=== PATIENT | female | born 1990 | race Caucasian/White ===

== ENCOUNTER 2016-11-29 13:12 | Inpatient (IN) ==
[2016-11-29 15:27] LABS: URINE SOURCE CLEAN CATCH
[2016-11-29 15:30] LABS: BILIRUBIN URINE 2+ (NEGATIVE); BLOOD URINE NEGATIVE (NEGATIVE); CLARITY CLEAR (CLEAR); COLOR AMBER; GLUCOSE URINE NEGATIVE (NEGATIVE); LEUKOCYTES URINE 1+ (NEGATIVE); NITRITE URINE NEGATIVE (NEGATIVE); PH URINE 6.5; PROTEIN URINE 1+(30 mg/dL) mg/dL (NEGATIVE); URINE MICROSCOPIC NEEDED? YES
[2016-11-29 16:05] LABS: URINE EPITHELIAL CELLS <10 /HPF (<10); URINE RBC <10 /HPF (<10)
[2016-11-29] MEDS ORDERED: ROBAXIN PO PRN (18:00)
[2016-11-29] MEDS ORDERED: ZOFRAN IV PRN (18:00)
[2016-11-29] MEDS ORDERED: DULCOLAX PR PRN (18:00)
[2016-11-29] MEDS ORDERED: TYLENOL PO PRN (18:00)
[2016-11-29] MEDS ORDERED: IMODIUM PO PRN (18:00)
[2016-11-29] MEDS ORDERED: SALINE LOCK IV FLUID XX ONE (18:00)
[2016-11-29] MEDS ORDERED: LIBRIUM PO PRN (18:00)
[2016-11-29] MEDS ORDERED: MOTRIN PO PRN (18:00)
[2016-11-29] MEDS ORDERED: AMBIEN PO PRN (18:00)
[2016-11-29] MEDS ORDERED: BENTYL PO PRN (18:00)
[2016-11-29] MEDS ORDERED: MAALOX PLUS LIQUID PO PRN (18:00)
[2016-11-29] MEDS ORDERED: SINEMET 25/100 PO PRN (18:00)
[2016-11-29] MEDS ORDERED: SENOKOT PO PRN (18:00)
[2016-11-29] MEDS ORDERED: PHENERGAN PO PRN (18:00)
[2016-11-29] MEDS ORDERED: TUBERSOL ID ONE (18:00)
[2016-11-29] MEDS: NICODERM PATCH TD SCH (18:21)
[2016-11-29] MEDS: SUBOXONE 2 MG/0.5 MG SL SCH (18:22)
[2016-11-29] MEDS ORDERED: M.V.I.-12 10 ML, FOLIC ACID 1 MG, MAGNESIUM SULFATE 1 GM, THIAMINE 100 MG in NS 1,000 ML IV ONE (18:30)
[2016-11-29 18:35] LABS: MANUAL DIFF NEEDED? NO
[2016-11-29 18:38] LABS: BASO% 0.5 % (0.0-0.8); EOS# 0.13 X1000 (0.0-0.7); EOS% 1.6 % (0.0-10.0); HEMATOCRIT 40.9 % (37.0-47.0); HEMOGLOBIN 14.2 g/dL (12.0-16.0); IMM GRAN# 0.01 X1000 (0.0-0.04); IMM GRAN% 0.1 % (0.0-0.5); LYMPH# 3.76 X1000 (1.2-3.4); MCH 31.1 PG (27-31); MCHC 34.7 g/dL (33-37); MCV 89.5 FL (81-99); MONO# 0.75 X1000 (0.11-0.59); MONO% 9.2 % (1.7-9.3); MPV 11.6 FL (7.4-10.4); NEUT% 42.6 % (42.2-75.2); PLT 242 X1000 (130-400); RBC 4.57 XMIL (4.2-5.4)
[2016-11-29] MEDS ORDERED: GRALISE PO SCH ×2 (18:45)
[2016-11-29 19:06] LABS: INR 1.14 (0.86-1.15); PROTIME 14.9 Seconds (12.1-15.5)
[2016-11-29 19:13] LABS: AGAP 11; ALKALINE PHOSPHATASE 54 U/L (32-104); AMYLASE 66 U/L (20-200); BUN 10 mg/dL (8-22); CALCIUM 8.9 mg/dL (8.8-10.2); CHLORIDE 106 mmol/L (98-107); COSMO 283; GOT 11 U/L (10-30); GPT 7 U/L (10-36); LIPASE 32 U/L (13-60); POTASSIUM 3.1 mmol/L (3.5-5.1); SODIUM 142 mmol/L (136-145); TCO2 25 mmol/L (25-35); TOTAL PROTEIN 6.5 g/dL (6.3-8.3)
[2016-11-29] MEDS: KLONOPIN PO PRN (20:17)
[2016-11-29] MEDS ORDERED: SEROQUEL PO SCH (21:00)
[2016-11-29 22:57] LABS: UROBILINOGEN URINE 3+(8 mg/dL)
[2016-11-30] MEDS: SUBOXONE 2 MG/0.5 MG SL SCH (05:40)
[2016-11-30 07:58] VITALS: BP 110/63
[2016-11-30 08:26] LABS: UR AMPHETAMINES QUAL NONE DETECTED (NONE DETECT); UR BARBITUATES QUAL NONE DETECTED (NONE DETECT); UR BENZODIAZEPIN QUAL PRESUMPTIVE POSITIVE (NONE DETECT); UR CANNABINOIDS QUAL PRESUMPTIVE POSITIVE (NONE DETECT); UR COCAINE QUAL NONE DETECTED (NONE DETECT); UR MDMA QUAL NONE DETECTED (NONE DETECT); UR METHADONE QUAL NONE DETECTED (NONE DETECT); UR METHAMPHETAMINE QUAL NONE DETECTED (NONE DETECT); UR OPIATES QUAL NONE DETECTED (NONE DETECT); UR OXYCODONE QUAL PRESUMPTIVE POSITIVE (NONE DETECT); UR PCP QUAL PRESUMPTIVE POSITIVE (NONE DETECT); UR TCA QUAL NONE DETECTED (NONE DETECT)
[2016-11-30] MEDS: KLONOPIN PO PRN (08:30)
[2016-11-30] MEDS: NICODERM PATCH TD SCH (08:34)
[2016-11-30] MEDS ORDERED: FOLIC ACID PO SCH (09:00)
[2016-11-30] MEDS ORDERED: VITAMIN B-1 PO SCH (09:00)
[2016-11-30] MEDS ORDERED: CIPRO PO SCH (09:00)
[2016-11-30] MEDS ORDERED: SUBOXONE 8 MG/2 MG SL SCH (09:00)
[2016-11-30] MEDS ORDERED: CELEXA PO SCH (09:00)
[2016-11-30] MEDS ORDERED: MULTI-VITAMIN PO SCH (09:00)
--- NOTE | 2016-11-30 21:00 | DISCHARGE SUMMARY ---
ADMISSION DATE: 11/29/2016 DISCHARGE DATE: 11/30/2016 SUBJECTIVE: The patient notes that she is doing much better. She is feeling relieved her symptoms have all been resolved. She is denying any chest pain or palpitations. She denies any fevers or chills. She denies dysuria or frequency. She states that her withdrawal symptoms have dramatically improved. DISCHARGE DIAGNOSES: 1. Nausea and vomiting resolved. 2. Abdominal pain. 3. Tremors. 4. Myalgias. 5. Paresthesias. 6. Paroxysmal sweating. DISPOSITION: The patient will be discharged home. I discussed with her for 35 minutes that she needs to avoid all persons, places, and situations which she has been using and abusing in the past. She needs outpatient life counseling as well as drug counseling. She needs to follow up for outpatient treatment, facility of choice.
[2016-12-01] MEDS ORDERED: SUBOXONE 2 MG/0.5 MG SL SCH (06:00)
--- NOTE | 2016-12-12 09:13 | HISTORY AND PHYSICAL ---
CHIEF COMPLAINT: Nausea, vomiting. HISTORY OF PRESENT ILLNESS: The patient is a 26-year-old female who presented to [facility] secondary to nausea, vomiting, and abdominal pain. Notes that she has been using and abusing opiates for quite some time. She had been in a Suboxone treatment facility but continued to fail drug tests and therefore she was dismissed from that clinic. SOCIAL HISTORY: Patient currently is from her as she notes that her continued to encourage her to use and abuse and that was the reason she was dismissed. She has 2 children that live in the house. She lives in the [facility]. SUBSTANCE ABUSE HISTORY: Patient has been using and abusing oxycodone. Currently taking five 30 mg pills a day at least, more if she can find it. She started smoking at age 12. Currently smokes approximately a pack a day. Drinks caffeine daily. Does not use other illicit substances. PAST MEDICAL HISTORY: Significant for asthma, depression, anxiety, bipolar, chronic back pain. She was in [facility] in late 2015 and stayed for 3 days. ALLERGIES: Ceclor, tramadol. MEDICATIONS: Seroquel 150 at bedtime, diclofenac 75 three times a day, Celexa 40, Gralise 300 at night and 600 at bedtime, Klonopin 1 mg twice a day. REVIEW OF SYSTEMS: CINA score is 17 secondary to nausea, vomiting, abdominal pain, frequent dry heaves, frequent stomach cramping, positive muscle aches and tremors, frequent changes in temperature, paroxysmal sweating. Denies any chest pain, palpitations. Denies any fevers or chills. Denies dysuria, frequency, urgency. Denies hesitancy, polyuria, polydipsia. Denies skin rashes, weight loss, or weight gain. FAMILY HISTORY: Noncontributory. PHYSICAL EXAMINATION: VITAL SIGNS: Reviewed and stable. GENERAL: Patient is awake, alert. She is in no distress. She is pleasant to talk with, although frequently has to be redirected. HEENT: Normocephalic, atraumatic. BARB. NECK: Supple. CV: Regular rate and rhythm. CHEST: Relatively clear. ABDOMEN: Soft, nondistended. EXTREMITIES: Moves all extremities. NEUROLOGIC: No focal neurological changes. SKIN: Warm and dry. No rashes. LABS: Pending. ASSESSMENT: 1. Nausea and vomiting. 2. Abdominal pain. 3. Tremors. 4. Myalgias. 5. Paresthesias. 6. Paroxysmal sweating. 7. Opiate abuse, withdrawal, and admit for stabilization. 8. Chronic anxiety and depression. 9. Chronic back pain. 10. Chronic neuropathy. PLAN: Will continue stabilization of patient's opiate withdrawal. We will continue her on her home medications without any changes, although we will decrease her Klonopin to 0.5 mg twice a day. Further orders as needed.
== END 2016-11-30 10:40 | disposition home or self-care (01) | DRG 897 ==
LOC: P.DIRADM 13:12 → P.MEDSURG 13:22
PROVIDERS: ADMIT Family Medicine; ATTEND Family Medicine
PROC: HZ2ZZZZ Detoxification Services for Substance Abuse Treatment (ICD-10-PCS; principal; 2016-11-29)
DX: F11.23 Opioid dependence with withdrawal (principal); G62.9 Polyneuropathy, unspecified; I10 Essential (primary) hypertension; F31.9 Bipolar disorder, unspecified; Z79.899 Other long term (current) drug therapy; F17.210 Nicotine dependence, cigarettes, uncomplicated; F41.9 Anxiety disorder, unspecified
CPT/HCPCS: 80053; 80305; 81001; 81025; 82150; 82948; 83690; 85025; 85610; 85730; 86580; G0480; J3411; J3475; J7030; 80320